=== PATIENT | female | born 1960 | race Caucasian/White ===

== ENCOUNTER → 2017-06-20 12:11 | Emergency (ER) | payer BC ==
[~2017-06-20 12:11] MED LIST: oxyCODONE/Acetamin 5/325 MG* TAB PO ONE
[2017-06-20 12:15] VITALS: BP 129/88
--- NOTE | 2017-06-20 14:08 | RAD ---
HISTORY: Ankle pain, foot pain COMPARISONS: None VIEWS: 6, Frontal, lateral, and oblique views of the right ankle and of the right foot FINDINGS: BONE DENSITY: Normal. BONES: There is a nondisplaced transverse fracture of the distal fibula with articular extension. The heart is unremarkable JOINTS: There is no arthropathy. ALIGNMENT: There is no dislocation. SOFT TISSUES: There is soft tissue swelling OTHER FINDINGS: None. IMPRESSION: NONDISPLACED FRACTURE OF THE LATERAL MALLEOLUS
--- NOTE | 2017-06-20 15:06 | ED ---
Lower Extremity - HPI Summary HPI Summary: 56F presents with right ankle pain today. She fell down a couple stairs and landed on her right ankle. She has not be able to ambulate since. She denies any numbness or tingling. She denies any previous injury to the area. She took advil prior to coming. She felt a pop in the ankle. - History of Current Complaint Chief Complaint: EDExtremityLower Stated Complaint: FALL/RT FOOT INJURY Time Seen by Provider: 06/20/17 13:16 Pain Intensity: 10 - Allergies/Home Medications Allergies/Adverse Reactions: Allergies Allergy/AdvReac Type Severity Reaction Status Date / Time No Known Allergies Allergy Verified 06/20/17 15:21 PMH/Surg Hx/FS Hx/Imm Hx Endocrine/Hematology History: Denies: Hx Anticoagulant Therapy Cardiovascular History: Reports: Hx Hypertension Infectious Disease History: Denies: Traveled Outside the [place] in Last 30 Days - Family History Known Family History: Positive: Hypertension - Social History Alcohol Use: Occasionally Substance Use Type: Reports: None Smoking Status (MU): Former Smoker Review of Systems Negative: Fever Negative: Chest Pain Negative: Shortness Of Breath Positive: Myalgia - right ankle pain All Other Systems Reviewed And Are Negative: Yes Physical Exam Triage Information Reviewed: Yes Vital Signs On Initial Exam: Initial Vitals Temp Pulse Resp BP Pulse Ox 97.2 F 119 22 129/88 98 06/20/17 12:12 06/20/17 12:12 06/20/17 12:12 06/20/17 12:12 06/20/17 12:12 Vital Signs Reviewed: Yes Appearance: Positive: Well-Appearing Skin: Positive: Warm, Dry Head/Face: Positive: Normal Head/Face Inspection Eyes: Positive: Normal, Conjunctiva Clear Respiratory/Lung Sounds: Positive: Clear to Auscultation, Breath Sounds Present Cardiovascular: Positive: Normal, RRR Musculoskeletal: Positive: Limited @ - right ankle, Edema Right - ankle, Other - good pulses, capillary refill<2 secs, tenderness over lateral aspect of ankle - Luisa Coma Scale Coma Scale Total: 15 Procedures - Splinting Location: ankle right Hand-Made Type: fiberglass Splint: posterior walking Pre-Proc Neuro Vasc Exam: normal Post-Proc Neuro Vasc Exam: normal Diagnostics - Vital Signs Vital Signs Temp Pulse Resp BP Pulse Ox 06/20/17 13:54 22 06/20/17 12:12 97.2 F 119 22 129/88 98 - Laboratory Lab Statement: Any lab studies that have been ordered have been reviewed, and results considered in the medical decision making process. - Radiology ankle Xray Interpretation: Positive (See Comments) - IMPRESSION: NONDISPLACED FRACTURE OF THE LATERAL MALLEOLUS Radiology Interpretation Completed By: Radiologist Lower Extremity Course/Dx - Course Course Of Treatment: 56F presents with right ankle pain today. She fell down a couple stairs and landed on her right ankle. She has not be able to ambulate since. She denies any numbness or tingling. She denies any previous injury to the area. She took advil prior to coming. She felt a pop in the ankle. xray shows fibula fracture. placed in posterior walking. patient understands and agrees with plan. - Diagnoses Differential Diagnosis/HQI/PQRI: Positive: Fracture (Closed), Sprain, Strain Provider Diagnoses: Fibula fracture Discharge - Discharge Plan Condition: Good Disposition: HOME Prescriptions: oxyCODONE/Acetamin 5/325 MG* [Percocet 5/325 TAB*] 1 tab PO Q6H PRN #20 tab MDD 4 PRN Reason: Pain Patient Education Materials: Ankle Fracture (ED) Referrals: Cata Olivares [employer] [Primary Care Provider] - Ortiz Patten MD [Medical Doctor] - Additional Instructions: Use crutches and stay nonweight bearing Keep splint on area and keep dry Call ortho office to set up appointment for follow up Use ibuprofen for pain every 6 hours and use narcotic for breakthrough pain Ice, elevate Return to ED if develop numbness or tingling or any new or worsening symptoms
== END | disposition home or self-care (01) ==
LOC: ED 12:11
DX: S82.401A Unspecified fracture of shaft of right fibula, initial encounter for closed fracture (principal); M25.571 Pain in right ankle and joints of right foot; Z87.891 Personal history of nicotine dependence; W10.9XXA Fall (on) (from) unspecified stairs and steps, initial encounter; Y93.89 Activity, other specified; Y92.89 Other specified places as the place of occurrence of the external cause
CPT/HCPCS: 99282; A9270-GY

== ENCOUNTER 2017-12-01 17:07 | Emergency (ER) | payer BC ==
[2017-12-01] MEDS ORDERED: Albuterol 2.5 MG/3 ML NEB.SOL* (0.083%) INH ONE (18:01)
--- NOTE | 2017-12-01 18:39 | RAD ---
Indication: Cough 2 views of the chest including dual energy PA views are reviewed. No mediastinal shift is noted. Heart is of normal size and configuration. There is a nodule in the right midlung zone with prominent right angelica and prominent paratracheal thickening. I cannot totally exclude an underlying mass with adenopathy. Left lung field is clear. IMPRESSION: Right midlung zone mass with suggestion of right suprahilar adenopathy or right hilar adenopathy. I cannot exclude a lung mass.
--- NOTE | 2017-12-01 19:02 | UC ---
Respiratory Complaint HPI - HPI Summary HPI Summary: Patient presents with a past medical history of hypothyroidism. She presents today with continued complaints of coughing. She states at night time she cannot lay down but what she begins to cough. She also complaints of generalized fatigue and malaise. She denies fever but does report night sweats. She states she has had two different antibiotic, courses of prednisone, and albuterol, and today will complete her Augmentin, and is not any better. - History of Current Complaint Chief Complaint: UCRespiratory Stated Complaint: chest congestion Time Seen by Provider: 12/01/17 17:52 Hx Obtained From: Patient Hx Last Menstrual Period: menopause ?: No Onset/Duration: Gradual Onset, Lasting Days Timing: Constant Severity Initially: Moderate Severity Currently: Moderate Character: Cough: Productive Aggravating Factors: Deep Breaths, Recumbent Position Alleviating Factors: Bronchodilator, Upright Position, Spontaneous Resolution Associated Signs And Symptoms: Positive: Dyspnea, Wheezing, URI, Nasal Congestion - Risk Factors Pulmonary Embolism Risk Factors: Negative Cardiac Risk Factors: Negative Pseudomonas Risk Factors: Negative Tuberculosis Risk Factors: Negative - Allergies/Home Medications Allergies/Adverse Reactions: Allergies Allergy/AdvReac Type Severity Reaction Status Date / Time No Known Allergies Allergy Verified 06/20/17 15:21 Home Medications: Home Medications Amitriptyline TAB* [Elavil TAB*] 100 mg PO BEDTIME 12/01/17 [History Confirmed 12/01/17] Amoxicillin/Clavulanate TAB* [Augmentin TAB 875*] 12/01/17 [History Confirmed 12/01/17] Cholecalciferol [Vitamin D] 12/01/17 [History] Cyanocobalamin [B12] 1,000 mcg PO 12/01/17 [History] FLUoxetine CAP* [PROzac CAP*] 10 mg PO DAILY 12/01/17 [History Confirmed ] Gabapentin 600 mg PO 12/01/17 [History] Levothyroxine Sodium [Synthroid] 12/01/17 [History] Multiple Vitamins W/ Minerals [Multivitamin Adult] 1 chw PO 12/01/17 [History] Nabumetone (Bulk) [Nabumetone] 12/01/17 [History] [place]-3 Fatty Acids [Fish Oil] 1,000 mg PO 12/01/17 [History Confirmed 12/01/17] Tizanidine HCl 12/01/17 [History Confirmed 12/01/17] PMH/Surg Hx/FS Hx/Imm Hx Previously Healthy: Yes Endocrine History: Hypothyroidism Other History Of: Negative For: Anticoagulant Therapy - Surgical History Surgical History: None - Family History Known Family History: Positive: Hypertension, Other - cancer - Social History Occupation: Employed Full-time Lives: Alone Alcohol Use: Occasionally Substance Use Type: None, Marijuana Smoking Status (MU): Former Smoker Review of Systems Constitutional: Negative Skin: Negative Eyes: Negative ENT: Negative Respiratory: Cough Cardiovascular: Negative Gastrointestinal: Negative Genitourinary: Negative Motor: Negative Is Patient Immunocompromised?: No All Other Systems Reviewed And Are Negative: Yes Physical Exam Triage Information Reviewed: Yes Appearance: Ill-Appearing Vital Signs: Initial Vital Signs Temp 99.0 F 12/01/17 17:13 Pulse 106 12/01/17 17:13 Resp 16 12/01/17 17:13 BP 133/77 12/01/17 17:13 Pulse Ox 100 12/01/17 17:13 Vital Signs Reviewed: Yes Eye Exam: Normal ENT Exam: Normal Neck exam: Normal Neck: Positive: 1 Respiratory Exam: Normal Respiratory: Positive: Normal breath sounds, No respiratory distress, No accessory muscle use, Rhonchi Cardiovascular Exam: Normal Abdominal Exam: Normal Musculoskeletal Exam: Normal Neurological Exam: Normal Psychological Exam: Normal Skin Exam: Normal UC Diagnostic Evaluation - Laboratory O2 Sat by Pulse Oximetry: 100 Respiratory Course/Dx - Course Course Of Treatment: Patient presents with a past medical history of hypothyroidism. She presents today with complaints of cough since . She has had two rounds of antibiotics, prednisone, albuterol and reports no improvment. A chest xray was obtained tonight and was read by the radiologists and reviewed by myself as right mid-lobe questional mass. I attempted to call her PCP and did recieve a call back from Dr. Beard from [facility] and they will follow the CXR results. I read the report to the patient and then I gave her a copy of the report and she understands that this could be cancer, and she needs a CT of her chest within two days. I did change her antibioitc to Levaquin, and also gave her Tussinex cough medication. She was told that if she cannot get back into her doctors within two days to come back to the walk-in and we can do it here. The influenza was positibe for B, and the patient was treated with Tamiflu 75 mg po bid x 5 days. She and he daughter verbalized understanding of and in agreement with the discharge plan. I will leave a copy of the report to see if we can reach [facility] tomorrow. - Differential Dx/Diagnosis Differential Diagnosis/HQI/PQRI: Other - pneumonia lung mass influenza Provider Diagnoses: pneumonia. lung mass. influenza Discharge - Discharge Plan Condition: Stable Disposition: HOME Prescriptions: Hydrocodone Polistirex-Chlorph [Tussionex Pennkinetic Ext 10-8 mg/5Ml] 5 ml PO Q6HR PRN #240 ml MDD 20ml PRN Reason: Cough Levofloxacin TAB* [Levaquin TAB*] 500 mg PO DAILY #10 tab Oseltamivir CAP* [Tamiflu CAP*] 75 mg PO BID #10 cap Patient Education Materials: Influenza (DC), Pneumonia (ED) Forms: *Work Release Referrals: Cata Olivares, [employer] [Primary Care Provider] - Additional Instructions: You need to follow up with your PCP within 48 hours, you need to have a CT of the chest to further evaluate the lung mass vs pneumonia. This could be cancer.
[2017-12-01 19:11] VITALS: BP 125/83
== END 2017-12-01 19:35 | disposition home or self-care (01) ==
LOC: UCEAST 17:07
DX: J18.9 Pneumonia, unspecified organism (principal); R91.8 Other nonspecific abnormal finding of lung field; J11.1 Influenza due to unidentified influenza virus with other respiratory manifestations; E03.9 Hypothyroidism, unspecified; Z72.89 Other problems related to lifestyle; F12.90 Cannabis use, unspecified, uncomplicated; Z87.891 Personal history of nicotine dependence
CPT/HCPCS: 71046; 87502; 93005; 99212; G0463

== ENCOUNTER 2017-12-03 12:23 | Emergency (ER) | payer BC ==
[2017-12-03 13:28] LABS: ABS Basophils 0 10^3/ul (0-0.2); ABS Eosinophils 0 10^3/ul (0-0.6); ABS Lymphocytes 0.4 10^3/ul (1.0-4.8); ABS Monocytes 0.5 10^3/ul (0-0.8); ABS Neutrophils 3.1 10^3/ul (1.5-7.7); ABS Nucleated RBC 0 10^3/ul; Eosinophil % 0.4 % (0-6); Hematocrit 37 % (35-47); Hemoglobin 12.5 g/dl (12.0-16.0); Lymphocyte % 9.8 % (25-47); Mean Corpuscular HGB Conc 34 g/dl (31-36); Mean Corpuscular Hemoglobin 31 pg (27-31); Mean Corpuscular Volume 91 fL (80-97); Mean Platelet Volume 7 um3 (7.4-10.4); Nucleated Red Blood Cells % 0.1; Platelet Count 248 10^3/ul (150-450); Red Blood Count 4.05 10^6/ul (4.0-5.4); Red Cell Distribution Width 14 % (10.5-15)
--- NOTE | 2017-12-03 13:37 | RAD ---
Indication: Shortness of breath. 2 views of the chest including dual energy PA views are reviewed and compared to previous exam dated December 01, 2017. No mediastinal shift is noted. COPD is noted. There is a nodular density in the right midlung field for which a mass cannot be excluded. CT of the chest is suggested for further evaluation. IMPRESSION: Right midlung zone mass. Prominent right hilum. CT of the chest is suggested for further evaluation. This is unchanged since December 01, 2017.
[2017-12-03 14:32] LABS: EGFR Non-African American 73.9 (>60)
[2017-12-03] MEDS ORDERED: LORazepam INJ* 2 MG/ML 1 ML VIAL IV PUSH ONE (14:55)
--- NOTE | 2017-12-03 15:36 | RAD ---
Indication: Lung mass. CT of the chest was performed without IV contrast. Coronal and sagittal reconstructed images were obtained. Inferior thyroid lobes are unremarkable. There is suggestion of precarinal adenopathy. This measures approximately 19 mm. There may be right sided additional adenopathy may measure up to 18 mm adjacent to the superior vena cava. Small prevascular space lymph nodes are noted measuring 8 mm and 7 mm. Subcarinal lymph nodes are noted measuring 18 mm. The heart demonstrates no pericardial effusion. Trachea and major bronchi appear patent. There is a mass in the right middle lobe which is lobulated and has slightly spiculated borders measuring 2 cm in length x 3.2 cm in AP x 1.7 cm in greatest width. This is consistent with a neoplastic process. There may be some peripheral atelectasis noted. No pleural fluid is identified. No alveolar consolidation is noted. The liver and spleen are otherwise unremarkable. Bilateral renal cysts are noted. No retroperitoneal adenopathy is noted. IMPRESSION: There is a mass in the right middle lobe consistent with a neoplastic process. There is likely right paratracheal, right hilar and subcarinal adenopathy noted.
[2017-12-03 16:01] LABS: Urine Appearance Clear; Urine Blood Negative (Negative); Urine Color Straw; Urine Ketones 1+ (Negative); Urine Protein Negative (Negative); Urine Specific Gravity 1.006 (1.010-1.030); Urine Urobilinogen Negative (Negative)
[2017-12-03 16:25] VITALS: BP 106/64
--- NOTE | 2017-12-03 18:22 | ED ---
Vincenzo Marin Nilda, scribed for Wes Roach MD on 12/03/17 at 1309 . Shortness of Breath - HPI Summary HPI Summary: This patient is a 57 year old F BIBA accompanied by EMS with a chief complaint of constant respiratory distress with wheezing since this morning. The patient rates the pain 6/10 in severity. Symptoms aggravated and alleviated by nothing. Patient reports vomiting and anxiety. Per EMS, on 12/01/17 pt was diagnosed with flu and PNA and is currently on her second day of Tamiflu. EMS states pt was tachypnic, with O2Sat initially in 80s but now 98. Pt is on medications for thyroid. PMHx includes depression and anxiety. No PMHx COPD, asthma, DM, HLD, or HTN. - History of Current Complaint Chief Complaint: EDRespiratoryDistress Time Seen by Provider: 12/03/17 12:24 Hx Obtained From: Patient, EMS Onset/Duration: Sudden Onset, Lasting Minutes, Still Present Timing: Constant Dyspnea At: Rest Aggrevating Factors: Nothing Alleviating Factors: Nothing Associated Signs & Symptoms: Wheezing - Allergy/Home Medications Allergies/Adverse Reactions: Allergies Allergy/AdvReac Type Severity Reaction Status Date / Time No Known Allergies Allergy Verified 06/20/17 15:21 Home Medications: Home Medications Cranberry (Vaccinium Macrocarp [Cranberry] 2,000 mg PO DAILY 12/03/17 [History Confirmed 12/03/17] Cyanocobalamin TAB* [Vitamin B12 TAB*] 500 mcg PO DAILY 12/03/17 [History Confirmed 12/03/17] Gabapentin CAP(*) [Neurontin 300 CAP(*)] 600 mg PO BEDTIME 12/03/17 [History Confirmed 12/03/17] Levofloxacin TAB* [Levaquin TAB*] 500 mg PO DAILY 12/03/17 [History Confirmed ] Levothyroxine TAB* [Synthroid TAB*] 100 mcg PO DAILY 12/03/17 [History Confirmed 12/03/17] Multiple Vitamins W/ Minerals [Womens Multivitamin] 1 tab PO DAILY 12/03/17 [ History Confirmed 12/03/17] Nabumetone TAB* [Relafen TAB*] 1,000 mg PO DAILY 12/03/17 [History Confirmed ] [place]-3 Fatty Acids (Nf) [Fish Oil (NF)] 1,000 mg PO DAILY 12/03/17 [History Confirmed 12/03/17] Odilia's Wort (Hickox Perf [St José Wort Extract] 300 mg PO DAILY 12/03/17 [History Confirmed 12/03/17] tiZANidine TAB* [Zanaflex TAB*] 2 mg PO TID PRN 12/03/17 [History Confirmed ] PMH/Surg Hx/FS Hx/Imm Hx Endocrine/Hematology History: Denies: Hx Anticoagulant Therapy, Hx Diabetes, Hx Thyroid Disease Cardiovascular History: Reports: Hx Hypertension Respiratory History: Denies: Hx Asthma, Hx Chronic Obstructive Pulmonary Disease (COPD) Psychiatric History: Reports: Hx Anxiety, Hx Depression Infectious Disease History: No Infectious Disease History: Denies: Hx Hepatitis, Traveled Outside the [place] in Last 30 Days - Family History Known Family History: Positive: Hypertension, Diabetes, Other - cancer - Social History Alcohol Use: Rare Substance Use Type: Reports: Marijuana Hx Tobacco Use: No Smoking Status (MU): Former Smoker Review of Systems Positive: Shortness Of Breath, Other - wheezing Positive: Vomiting Positive: Anxious All Other Systems Reviewed And Are Negative: Yes Physical Exam - Summary Physical Exam Summary: VITAL SIGNS: Reviewed. GENERAL: Patient is a well-developed and nourished elderly female who is in acute respiratory distress. Pt has difficulty speaking because of respiratory distress. HEAD AND FACE: No signs of trauma. No ecchymosis, hematomas or skull depressions. No sinus tenderness. EYES: PERRLA, EOMI x 2, No injected conjunctiva, no nystagmus. EARS: Hearing grossly intact. Ear canals and tympanic membranes are within normal limits. MOUTH: Oropharynx within normal limits. Oral mucosa dry. NECK: Supple, trachea is midline, no adenopathy, no JVD, no carotid bruit, no c- spine tenderness, neck with full ROM. CHEST: Symmetric, no tenderness at palpation LUNGS: Lower lobes with crackles bilat CVS: Regular rate and rhythm, S1 and S2 present, no murmurs or gallops appreciated. ABDOMEN: Soft, non-tender. No signs of distention. No rebound no guarding, and no masses palpated. Bowel sounds are normal. EXTREMITIES: FROM in all major joints, no edema, no cyanosis or clubbing. NEURO: Alert and oriented x 3. No acute neurological deficits. Speech is normal and follows commands. SKIN: Dry and warm Triage Information Reviewed: Yes Vital Signs On Initial Exam: Initial Vitals Temp Pulse Resp BP Pulse Ox 98.9 F 99 23 154/71 100 12/03/17 12:29 12/03/17 12:29 12/03/17 12:29 12/03/17 12:29 12/03/17 12:29 Vital Signs Reviewed: Yes Diagnostics - Vital Signs Vital Signs Temp Pulse Resp BP Pulse Ox 12/03/17 12:59 92 23 100 12/03/17 12:54 67 17 79 12/03/17 12:41 98 12/03/17 12:29 98.9 F 99 23 154/71 100 - Laboratory Lab Results: Lab Results 12/03/17 Range/Units 12:35 Patient Temperature Not Reportable ABG pH 7.63 H* (7.35-7.45) ABG pH (Temp Correct) Not Reportable ABG pCO2 < 20 L (35-45) mmHg ABG pCO2 (Temp Corrct Not Reportable ABG pO2 132 H (80-100) mmHg ABG pO2 (Temp Correct Not Reportable ABG HCO3 24.3 (19-31) mmol/L ABG O2 Saturation 98.4 H (95-98) % ABG Base Excess -0.8 (-2.0-2.0) Respiration Rate Not Reportable O2 Delivery Device 5 Ventilator Type Not Reportable Vent Mode Not Reportable FiO2 Not Reportable Inspiratory Time Not Reportable PEEP Not Reportable Pressure Support Not Reportable Pressure Control Not Reportable EPAP Not Reportable IPAP Not Reportable BiPAP Not Reportable Result Diagrams: 12/03/17 13:00 12/03/17 13:00 Lab Statement: Any lab studies that have been ordered have been reviewed, and results considered in the medical decision making process. - Radiology CXR Radiology Interpretation Completed By: Radiologist - CXR, per radiologist, reveals right midlung zone mass. Prominent right hilum. CT of the chest is suggested for further evaluation. This is unchanged since December 01, 2017. Dr. Roach has reviewed this radiology report. - CT Chest CT Interpretation Completed By: Radiologist - CT Chest, per radiologist, reveals there is a mass in the right middle lobe consistent with a neoplastic process. There is likely right paratracheal, right hilar and subcarinal adenopathy noted. Dr. Roach has reviewed this report. - EKG 1226 Cardiac Rate: NL EKG Rhythm: Sinus Rhythm - 96 bpm EKG Interpretation: no ST elevation Course/Dx - Course Assessment/Plan: This patient is a 57 year old F BIBA accompanied by EMS with a chief complaint of respiratory distress with wheezing since this morning. The patient rates the pain 6/10 in severity. Symptoms aggravated and alleviated by nothing. Patient reports vomiting and anxiety. Per EMS, on 12/01/17 pt was diagnosed with flu and PNA and is currently on her 2 day of Tamiflu. EMS states pt was tachypnic, with O2Sat initially in 80s but now 98. Pt is on medications for thyroid. PMHx includes depression and anxiety. No PMHx COPD, asthma, DM, HLD , or HTN. Pending labs, EKG, CXR. Labs have no significant abnormalities except for elevated ABG pH: 7.63 and CRP 24.4. An EKG reveals NSR, 96 bpm, no ST elevation. CXR, per radiologist, reveals right midlung zone mass. Prominent right hilum. CT of the chest is suggested for further evaluation. This is unchanged since December 01, 2017. Because of the lung nodule it was recommended to Chest CT. CT Chest, per radiologist, reveals there is a mass in the right middle lobe consistent with a neoplastic process. There is likely right paratracheal, right hilar and subcarinal adenopathy noted. Dr. Roach has reviewed these radiology reports. I discussed the case with Dr. Salinas (Oncology ) who recommends that pt will be worked out as an outpatient and is willing to see pt in one week. I believe her symptoms were secondary to the flu. Since she s feeling better, she will be D/C home with f/u with PCP. Pt will be sent home with nausea medications since symptoms were triggered by N/V. The pt is no longer nauseous. The pt is hemodynamically stable, alert and oriented x3 and will be D/C with Dx of influenza and lung mass. Pt understands and is agreeable with this plan. I discussed all the findings and test results with the patient. Patient was instructed to return to the emergency room immediately if any of the symptoms return or worsens. Plan of care was discussed with the patient and understands and agrees. All questions were answered at patient satisfaction. There were no further complaints or concerns. Lung exam before discharge: CTA B/L. Good air exchange. No wheezing or crackles heard. CVS: S1 and S2 present. No murmurs appreciated. Patient is alert and oriented x 3. Patient is hemodynamically stable. Patient will be discharged home with follow up PCP in the next 2-3 days - Diagnoses Differential Diagnosis/HQI/PQRI: Positive: Asthma, Bronchitis, Pneumonia, Pulmonary Edema Provider Diagnoses: Lung mass, Influenza - Physician Notifications Discussed Care of Patient With: Waldemar Salinas - Oncology Time Discussed With Above Provider: 15:37 Instructed by Provider To: Other - recommends that pt will be worked out as an outpatient and is willing to see pt in one week. Discharge - Discharge Plan Condition: Stable Disposition: HOME Prescriptions: Ondansetron ODT TAB* [Zofran 4 MG Odt TAB*] 4 mg PO Q8H PRN #10 tab.odt PRN Reason: Vomiting Patient Education Materials: Lung Cancer (DC), Influenza (ED) Referrals: Waldemar Salinas MD [Medical Doctor] - 1 Day Cata Olivares NP [Primary Care Provider] - 3 Days Additional Instructions: RETURN TO THE EMERGENCY DEPARTMENT FOR CHANGING OR WORSENING SYMPTOMS. The documentation as recorded by the Vincenzo garcia Nilda accurately reflects the service I personally performed and the decisions made by me, Wes Roach MD.
== END 2017-12-03 16:23 | disposition home or self-care (01) ==
LOC: ED 12:23
DX: J11.1 Influenza due to unidentified influenza virus with other respiratory manifestations (principal); R91.8 Other nonspecific abnormal finding of lung field; R06.2 Wheezing; Z87.891 Personal history of nicotine dependence; R06.02 Shortness of breath; R11.10 Vomiting, unspecified
CPT/HCPCS: 36415; 36600; 71046; 71250; 80053; 81003; 82550; 82553; 82803; 83605; 83880; 84484; 85025; 85730; 86140; 87040; 93005; 96374; 99284; J2060

== ENCOUNTER 2018-01-22 14:39 | Emergency (ER) | payer BC ==
[2018-01-22 15:09] VITALS: BP 138/106
== END 2018-01-22 16:30 | disposition left against medical advice (07) ==
LOC: ED 14:39
DX: R07.9 Chest pain, unspecified (principal); Z53.21 Procedure and treatment not carried out due to patient leaving prior to being seen by health care provider
CPT/HCPCS: 93005; 99281

== ENCOUNTER 2018-02-08 19:09 | Emergency (ER) | payer BC ==
[2018-02-08] MEDS ORDERED: LORazepam INJ* 2 MG/ML 1 ML VIAL IV PUSH ONE (19:32)
[2018-02-08 20:13] LABS: Hematocrit 31 % (35-47); Hemoglobin 10.5 g/dl (12.0-16.0); Mean Corpuscular HGB Conc 34 g/dl (31-36); Mean Corpuscular Hemoglobin 31 pg (27-31); Mean Corpuscular Volume 90 fL (80-97); Mean Platelet Volume 6.2 um3 (7.4-10.4); Platelet Count 320 10^3/ul (150-450); Red Blood Count 3.41 10^6/ul (4.0-5.4); Red Cell Distribution Width 17 % (10.5-15); White Blood Count 4.1 10^3/ul (3.5-10.8)
[2018-02-08 20:24] LABS: INR 0.94 (0.77-1.02)
[2018-02-08 20:29] LABS: EGFR Non-African American 73.9 (>60)
[2018-02-08] MEDS ORDERED: Iohexol 350* (CONTRAST) 500 ML MDV IV ONE (20:33)
[2018-02-08 20:50] LABS: ABS Basophils 0 10^3/ul (0-0.2); ABS Eosinophils 0.1 10^3/ul (0-0.6); ABS Lymphocytes 0.8 10^3/ul (1.0-4.8); ABS Monocytes 0.9 10^3/ul (0-0.8); ABS Neutrophils 2.4 10^3/ul (1.5-7.7); ABS Nucleated RBC 0 10^3/ul; Eosinophil % 1.7 % (0-6); Lymphocyte % 18.7 % (25-47); Nucleated Red Blood Cells % 0.1
--- NOTE | 2018-02-08 21:01 | RAD ---
HISTORY: Shortness of breath, difficulty breathing, lung cancer COMPARISONS: PET CT dated December 17, 2017 TECHNIQUE: Multiple contiguous axial CT scans of the chest were obtained after the administration of nonionic intravenous contrast, timed to the pulmonary arterial phase of contrast enhancement.. Coronal and sagittal multiplanar reformations are also submitted for review. FINDINGS: NECK AND THYROID: The lower neck and thyroid are unremarkable. CHEST WALL: There is persistent right supraclavicular lymphadenopathy, similar to the previous examination. A right-sided chest port is noted. HEART AND PERICARDIUM: There is pericardial extension of the right facet lymphadenopathy. The heart is otherwise unremarkable. AORTA AND PULMONARY VASCULATURE: There is no pulmonary arterial filling defect to suggest pulmonary embolism. There is severe attenuation of the right upper lobe pulmonary arterial branches and moderate attenuation right middle lobe and right lower lobe pulmonary arterial branches secondary to the hilar and mediastinal lymphadenopathy. There is no linear filling defect within the aorta to suggest aortic dissection. MEDIASTINUM: There is extensive mediastinal lymphadenopathy. This is similar to the previous examination. ELIEZER: There is persistent right hilar lymphadenopathy. AIRWAY AND ESOPHAGUS: The airway is unremarkable, without endobronchial filling defect. The esophagus is grossly normal. LUNG PARENCHYMA: There is a stable mass of the right middle lobe. There has been interval development of a rounded density within the right upper lobe on axial image 17 measuring 2 cm in size. PLEURA: No pleural abnormalities are noted. UPPER ABDOMEN: The upper abdomen is unremarkable. BONES AND SOFT TISSUES: Degenerative changes are noted along the spine OTHER: None. IMPRESSION: 1. NO PULMONARY ARTERIAL FILLING DEFECT TO SUGGEST PULMONARY EMBOLISM. 2. THERE IS ATTENUATION OF THE PULMONARY ARTERIAL BRANCHES OF THE RIGHT LUNG SECONDARY TO MEDIASTINAL AND HILAR LYMPHADENOPATHY. 3. THERE IS EXTENSIVE MEDIASTINAL AND RIGHT HILAR LYMPHADENOPATHY, SIMILAR TO THE PREVIOUS PET/CT EXAMINATION. 4. THERE IS A STABLE MASS OF THE RIGHT MIDDLE LOBE. 5. THERE IS A ROUNDED DENSITY OF THE RIGHT UPPER LOBE THAT IS NOT CLEARLY SEEN ON PREVIOUS EXAMINATIONS WHICH MAY REFLECT PROGRESSION OF METASTATIC DISEASE.
[2018-02-08] MEDS ORDERED: Ondansetron INJ* 2 MG/ML VIAL IV ONE (21:16)
[2018-02-08] MEDS ORDERED: Morphine INJ* 4 MG/ML 1 ML SYRINGE (NEW SYRINGE VERSION) IV ONE (21:16)
[2018-02-08] MEDS ORDERED: Morphine INJ* 2 MG/ML 1 ML CARPUJECT IV ONE (21:16)
--- NOTE | 2018-02-08 21:39 | ED ---
Juana Marin Julia, scribed for Bonny Gonzalez MD on 02/08/18 at 1920 . Shortness of Breath - HPI Summary HPI Summary: This patient is a 57 year old F presenting to [facility] with a chief complaint of SOB secondary to PNA for the past two weeks worsening 02/06/18. Patient reports cough and pain between shoulders with breathing. Patient denies fever. The patient rates the pain 8/10 in severity. Symptoms aggravated by lying down. Pt s last chemotherapy tx for lung CA three weeks ago, first beginning six weeks ago. She was diagnosed with stage 3 lung cancer in November 2017. She was given steroids and abx for her recent PNA, but ran out of abx on 02/06/18. Pt has hx of anxiety and panic attacks. Pt is seen by Dr. Salinas. Medications reviewed with patient. - History of Current Complaint Chief Complaint: EDShortnessOfBreath Time Seen by Provider: 02/08/18 19:17 Hx Obtained From: Patient Onset/Duration: Gradual Onset, Lasting Weeks, Worse Since - 02/06/18 Timing: Constant Aggrevating Factors: Deep Breaths, Recumbent Position Associated Signs & Symptoms: Cough (Productive), Chest Pain w/Cough Related History: Similar Episode - PNA - Allergy/Home Medications Allergies/Adverse Reactions: Allergies Allergy/AdvReac Type Severity Reaction Status Date / Time No Known Allergies Allergy Verified 12/23/17 13:46 PMH/Surg Hx/FS Hx/Imm Hx Endocrine/Hematology History: Denies: Hx Anticoagulant Therapy, Hx Diabetes, Hx Thyroid Disease Cardiovascular History: Denies: Hx Hypertension, Hx Pacemaker/ICD Respiratory History: Reports: Hx Pneumonia, Other Respiratory Problems/ Disorders - LUNG CA Denies: Hx Asthma, Hx Chronic Obstructive Pulmonary Disease (COPD) History: Denies: Hx Renal Disease Sensory History: Denies: Hx Hearing Aid Psychiatric History: Denies: Hx Panic Disorder - Cancer History Cancer Type, Location and Year: NEWLY DX LUNG CARCINOMA - Surgical History Surgery Procedure, Year, and Place: 2 C SECTIONS Infectious Disease History: No Infectious Disease History: Denies: Hx Hepatitis, Traveled Outside the [place] in Last 30 Days - Family History Known Family History: Positive: Hypertension, Other - cancer - Social History Alcohol Use: Rare Substance Use Type: Reports: Marijuana Hx Tobacco Use: No - quit 25 years ago Smoking Status (MU): Former Smoker Review of Systems Negative: Fever Positive: Shortness Of Breath, Cough Positive: Myalgia - back pain Positive: Anxious All Other Systems Reviewed And Are Negative: Yes Physical Exam - Summary Physical Exam Summary: VITAL SIGNS: Reviewed. GENERAL: Patient is a well-developed and nourished female who is emotional and tearful. Patient is not in any acute respiratory distress. HEAD AND FACE: No signs of trauma. No ecchymosis, hematomas or skull depressions. No sinus tenderness. EYES: PERRLA, EOMI x 2, No injected conjunctiva, no nystagmus. EARS: Hearing grossly intact. Ear canals and tympanic membranes are within normal limits. MOUTH: Oropharynx within normal limits. NECK: Supple, trachea is midline, no adenopathy, no JVD, no carotid bruit, no c- spine tenderness, neck with full ROM. CHEST: Symmetric, no tenderness at palpation LUNGS: Clear to auscultation bilaterally. No wheezing or crackles. CVS: Regular rate and rhythm, S1 and S2 present, no murmurs or gallops appreciated. ABDOMEN: Soft, non-tender. No signs of distention. No rebound no guarding, and no masses palpated. Bowel sounds are normal. EXTREMITIES: FROM in all major joints, no edema, no cyanosis or clubbing. NEURO: Alert and oriented x 3. No acute neurological deficits. Speech is normal and follows commands. SKIN: Dry and warm Triage Information Reviewed: Yes Vital Signs On Initial Exam: Initial Vitals Temp Pulse Resp BP Pulse Ox 98.5 F 98 24 136/79 98 02/08/18 19:13 02/08/18 19:13 02/08/18 19:13 02/08/18 19:13 02/08/18 19:13 Vital Signs Reviewed: Yes Diagnostics - Vital Signs Vital Signs Temp Pulse Resp BP Pulse Ox 02/08/18 19:13 98.5 F 98 24 136/79 98 - Laboratory Result Diagrams: 02/08/18 20:00 02/08/18 20:00 Lab Statement: Any lab studies that have been ordered have been reviewed, and results considered in the medical decision making process. - CT Chest CT Interpretation Completed By: Radiologist - 1. NO PULMONARY ARTERIAL FILLING DEFECT TO SUGGEST PULMONARY EMBOLISM. 2. THERE IS ATTENUATION OF THE PULMONARY ARTERIAL BRANCHES OF THE RIGHT LUNG SECONDARY TO MEDIASTINAL AND HILAR LYMPHADENOPATHY. 3. THERE IS EXTENSIVE MEDIASTINAL AND RIGHT HILAR LYMPHADENOPATHY, SIMILAR TO THE PREVIOUS PET/CT EXAMINATION. 4. THERE IS A STABLE MASS OF THE RIGHT MIDDLE LOBE. 5. THERE IS A ROUNDED DENSITY OF THE RIGHT UPPER LOBE THAT IS NOT CLEARLY SEEN ON PREVIOUS EXAMINATIONS WHICH MAY REFLECT PROGRESSION OF METASTATIC DISEASE. ED Physician has reviewed this report. - EKG 1941 Cardiac Rate: NL - at 95 BPM EKG Rhythm: Sinus Rhythm ST Segment: Non-Specific EKG Interpretation: normal axis, normal interval Re-Evaluation - Re-Evaluation 1 Re-Evaluation Time: 21:15 Change: Improved - Pt feels better but still has back pain Course/Dx - Course Course Of Treatment: Pt presents with SOB secondary to PNA for the past two weeks worsening 02/06/18. Patient reports cough and pain between shoulders with breathing. Pt was diagnosed with stage 3 lung CA in November 2017, and started chemo six weeks ago. EKG reveals non-specific ST changes. Pt is emotional. Pt is given Ativan and Zofran. A Chest CT indicative of previously diagnosed lung CA, but is otherwise not acutely concerning. Lab results obtained. Pt feels better while in ED, but additionally c/o back pain. Pt is given Morphine. PT is discharged and instructed to follow up with Dr. Salinas, her oncologist. - Diagnoses Provider Diagnoses: Lung cancer, Anxiety Discharge - Sign-Out/Discharge Documenting (check all that apply): Discharge - Discharge Plan Condition: Stable Disposition: HOME Patient Education Materials: Anxiety (ED) Referrals: Waldemar Salinas MD [Medical Doctor] - As Soon As Possible (Follow up with Dr. Salinas) Additional Instructions: RETURN TO THE EMERGENCY DEPARTMENT FOR CHANGING OR WORSENING SYMPTOMS. The documentation as recorded by the Juana garcia Julia accurately reflects the service I personally performed and the decisions made by me, Bonny Gonzalez MD.
[2018-02-08 22:52] VITALS: BP 137/76
== END 2018-02-08 22:50 | disposition home or self-care (01) ==
LOC: ED 19:09
DX: R06.02 Shortness of breath (principal); C34.90 Malignant neoplasm of unspecified part of unspecified bronchus or lung; F41.9 Anxiety disorder, unspecified; Z87.891 Personal history of nicotine dependence
CPT/HCPCS: 36415; 71275; 80053; 83735; 83880; 84484; 85025; 85610; 85730; 93005; 96374; 96375; 96376; 99282; J1642; J2060; J2270; J2405; Q9967